=== PATIENT | male | born 1990 | race Caucasian/White ===

== ENCOUNTER 2018-03-28 11:53 | Emergency (ER) | payer OTHER ==
[~2018-03-28] VITALS: Ht 177.8 cm; Wt 55.4 kg
[2018-03-28] MEDS ORDERED: PROPOFOL 10 MG/ML, 20ML IVP ONE (13:00)
[2018-03-28] MEDS ORDERED: PROPOFOL 10 MG/ML, 20ML ONE (13:06)
[2018-03-28 14:41] VITALS: BP 113/72
== END 2018-03-28 14:44 | disposition home or self-care (01) ==
LOC: ED 12:47
DX: S43.004A Unspecified dislocation of right shoulder joint, initial encounter (principal); X58.XXXA Exposure to other specified factors, initial encounter; Y93.89 Activity, other specified; Y99.8 Other external cause status; Y92.89 Other specified places as the place of occurrence of the external cause
CPT/HCPCS: 23650